=== PATIENT | female | born 1960 | race Caucasian/White ===

== ENCOUNTER → 2018-10-03 | Outpatient (CLI) | payer OTHER ==
[~2018-10-03] MED LIST: AMOCLA875 PO; LORA2 PO; NAPR550 PO; OXYACE5T PO; OXYC1TAB11 PO
== END | disposition home or self-care (01) ==
LOC: LAB SHORT 13:57 → LAB 13:57
PROVIDERS: Nurse Practitioner
DX: Z01.419 Encounter for gynecological examination (general) (routine) without abnormal findings (principal)
CPT/HCPCS: G0145

== ENCOUNTER → 2022-01-14 | Outpatient (CLI) | payer BC | END | disposition home or self-care (01) | LOC: RAD SHORT 14:34 | PROVIDERS: Family Medicine | DX: Z01.419 Encounter for gynecological examination (general) (routine) without abnormal findings (principal) | CPT/HCPCS: G0145 ==

== ENCOUNTER 2023-09-19 11:17 | Day surgery (SDC) | payer BC ==
[~2023-09-19] VITALS: Ht 167.6 cm; Wt 71.3 kg
[2023-09-19] MEDS ORDERED: LOSA50 PO (11:56)
[2023-09-19] MEDS ORDERED: VARENICLINE TART1 M2 PO (11:56)
[2023-09-19 14:13] VITALS: BP 164/92
== END 2023-09-19 14:31 | disposition home or self-care (01) ==
LOC: ORSCSDS 11:17
PROVIDERS: Otolaryngology
PROC: 0JB10ZX Excision of Face Subcutaneous Tissue and Fascia, Open Approach, Diagnostic (ICD-10-PCS; principal; 2023-09-19 13:00)
DX: L72.0 Epidermal cyst (principal); H61.92 Disorder of left external ear, unspecified; I10 Essential (primary) hypertension; Z85.828 Personal history of other malignant neoplasm of skin; Z85.41 Personal history of malignant neoplasm of cervix uteri; Z79.899 Other long term (current) drug therapy; F17.210 Nicotine dependence, cigarettes, uncomplicated
CPT/HCPCS: 88304; J2250